=== PATIENT | female | born 1980 | race American Indian/Alaskan Native ===

== ENCOUNTER 2018-09-23 06:47 | Emergency (ER) | payer MEDICAID, OTHER ==
[2018-09-23 06:56] VITALS: BP 133/88
[2018-09-23] MEDS ORDERED: TYLENOL PO ONE (07:03)
[2018-09-23] MEDS ORDERED: TYLENOL ONE (07:07)
[2018-09-23] MEDS ORDERED: DECADRON IM ONE (07:35)
--- NOTE | 2018-09-23 07:36 | Emergency Department Report ---
Minor Respiratory - HPI Chief Complaint: Upper Respiratory Infection Stated Complaint: HEAD COLD Time Seen by Provider: 09/23/18 07:35 Duration: over a month Pain Location: Facial, Throat, Nose, Ear Severity: mild Minor Respiratory: Yes Able to Tolerate Fluids, Yes Ear Pain, No Rhinorrhea, No Sore Throat, No Cough, No Sick Contacts, No Hemoptysis, No Chest Pain, No Bel rtness of Breath, No Fever Other History: Patient is a 37-year-old -[place] female who comes to the ER today with persistent upper respiratory tract infections. She has had these symptoms for over a month. She was seen here about a month ago for the same. However, she was unable to afford the medications so she did not get them filled. Patient was given good Rx card and information about medication refill and cost. Patient is afebrile and in no acute distress. Patient does say that she has an appointment with a primary care at the end of the month. She is out of her metformin, insulin and lisinopril. ED Review of Systems ROS: Stated complaint: HEAD COLD Other details as noted in HPI Comment: All other systems reviewed and negative Constitutional: denies: chills, fever Eyes: denies: eye pain ENT: ear pain. denies: throat pain Respiratory: denies: cough Cardiovascular: denies: palpitations Endocrine: denies: intolerance to cold Gastrointestinal: denies: nausea ED Past Medical Hx - Past Medical History Previous Medical History?: Yes Hx Hypertension: Yes Hx Diabetes: Yes Hx Psychiatric Treatment: Yes (anxiety) Additional medical history: depression. anxiety. neruopathy - Surgical History Past Surgical History?: No - Social History Smoking Status: Current Every Day Smoker Substance Use Type: None - Medications Home Medications: Home Medications Medication Instructions Recorded Confirmed Last Taken Type FLUoxetine [PROzac] 20 mg PO QDAY 08/25/18 08/25/18 08/25/18 History OLANzapine [ZyPREXA] 10 mg PO DAILY 08/25/18 08/25/18 08/24/18 History Albuterol Sulfate [Ventolin HFA] 2 puff IH Q4H PRN #1 hfa.aer.ad 09/23/18 Unknown Rx Amoxicillin 500 mg PO BID #20 capsule 09/23/18 Unknown Rx Insulin NPH Hum/Reg Insulin Hm 11 unit SQ DAILY #1 vial 09/23/18 Unknown Rx [Novolin 70-30 100 Unit/ml Vial] Lisinopril [Zestril TAB] 10 mg PO QDAY #30 tablet 09/23/18 Unknown Rx metFORMIN [Glucophage] 500 mg PO BID #60 tablet 09/23/18 Unknown Rx predniSONE [Deltasone] 40 mg PO QDAY 5 Days tab 09/23/18 Unknown Rx Minor Respiratory Exam - Exam General: Vital signs noted. No distress. Alert and acting appropriately. HEENT: Yes Moist Mucous Membranes, No Pharyngeal Erythema, No Pharyngeal Exudates, No Rhinorrhea, No Conjuctival Injection, No Frontal Tenderness, No M axillary Tenderness Ear: Neither TM Bulge, Neither TM Erythema, Neither EAC Pain, Neither EAC Discharge Neck: Yes Supple, No Adenopathy Lungs: Yes Good Air Exchange, No Wheezes, No Ronchi, No Stridor, No Cough, No Labored Respirations, No Retractions, No Use of Accessory Muscles, No Other Abnormal Lung Sounds Heart: Yes Regular, No Murmur Abdomen: Yes Normal Bowel Sounds, No Tenderness, No Peritoneal Signs Skin: No Rash, No Edema Neurologic: Alert and oriented, no deficits. Musculoskeletal: Unremarkable. ED Course Vital Signs 09/23/18 06:50 Temperature 97.8 F Pulse Rate 108 H Respiratory 18 Rate Blood Pressure 133/88 O2 Sat by Pulse 98 Oximetry ED Medical Decision Making - Medical Decision Making see hpi - Differential Diagnosis urti Critical care attestation.: If time is entered above; I have spent that time in minutes in the direct care of this critically ill patient, excluding procedure time. ED Disposition Clinical Impression: Medication refill, Diabetes, HTN (hypertension), URTI (acute upper respiratory infection), Sinusitis Disposition: TO HOME OR SELFCARE Is pt being admited?: No Does the pt Need Aspirin: No Condition: Stable Instructions: Upper Respiratory Infection (ED) Prescriptions: Albuterol Sulfate [Ventolin HFA] 2 puff IH Q4H PRN #1 hfa.aer.ad PRN Reason: Shortness Of Breath Insulin NPH Hum/Reg Insulin Hm [Novolin 70-30 100 Unit/ml Vial] 11 unit SQ DAILY #1 vial Lisinopril [Zestril TAB] 10 mg PO QDAY #30 tablet metFORMIN [Glucophage] 500 mg PO BID #60 tablet predniSONE [Deltasone] 40 mg PO QDAY 5 Days tab Referrals: PRIMARY CARE, [Primary Care Provider] - 3-5 Days [facility] [Outside] - 3-5 Days Time of Disposition: 07:56
== END 2018-09-23 08:02 | disposition home or self-care (01) ==
LOC: ED 06:47
DX: J06.9 Acute upper respiratory infection, unspecified (principal); I10 Essential (primary) hypertension; Z76.0 Encounter for issue of repeat prescription; J01.90 Acute sinusitis, unspecified; E11.40 Type 2 diabetes mellitus with diabetic neuropathy, unspecified; F17.200 Nicotine dependence, unspecified, uncomplicated; F41.9 Anxiety disorder, unspecified; F32.9 Major depressive disorder, single episode, unspecified; Z79.4 Long term (current) use of insulin
CPT/HCPCS: 82962; 96372; 99283; J1100

== ENCOUNTER 2019-06-09 08:19 | Emergency (ER) | payer SELFPAY ==
[2019-06-09] MEDS ORDERED: CYCLOBENZAPRINE 10 MG TAB PO ONE (09:48)
--- NOTE | 2019-06-09 10:06 | Emergency Department Report ---
HPI - General Chief Complaint: Back Pain/Injury Time Seen by Provider: 06/09/19 09:48 - HPI HPI: 38-year-old -[place] female presents to the emergency department with a few different complaints. First, the patient says that she thinks that she got a sinus infection. She has been having a 1-2 day history of some sinus congestion and pain. No fever. No cough. She has not taken anything for her symptoms prior to arrival. Secondly, the patient complains of a 1-2 day history of exacerbation of back pain. 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 Overall she says that she has some chronic back pains but this morning she woke up very stiff and says that she had trouble getting out of bed. However the patient did ambulate into the emergency department. She denies any problems with bowel or bladder, numbness or paresthesias, or any neurological deficits. She's been taking some ibuprofen for her symptoms without any relief. She denies any fall, trauma or injury. Lastly, the patient complains of acute on chronic bilateral foot pain. She feels that they are slightly swollen. She has a past medical history of diabetes, hypertension and there is a listing of her having neuropathy. She goes to [facility] for primary care. ED Past Medical Hx - Past Medical History Previous Medical History?: Yes Hx Hypertension: Yes Hx Diabetes: Yes Hx Psychiatric Treatment: Yes (anxiety) Additional medical history: depression. anxiety. neruopathy - Surgical History Past Surgical History?: No - Social History Smoking Status: Never Smoker Substance Use Type: None - Medications Home Medications: Home Medications Medication Instructions Recorded Confirmed Last Taken Type FLUoxetine [PROzac] 20 mg PO QDAY 08/25/18 08/25/18 08/25/18 History OLANzapine [ZyPREXA] 10 mg PO DAILY 08/25/18 08/25/18 08/24/18 History Albuterol Sulfate [Ventolin HFA] 2 puff IH Q4H PRN #1 hfa.aer.ad 09/23/18 Unknown Rx Amoxicillin 500 mg PO BID #20 capsule 09/23/18 Unknown Rx Insulin NPH Hum/Reg Insulin Hm 11 unit SQ DAILY #1 vial 09/23/18 Unknown Rx [Novolin 70-30 100 Unit/ml Vial] Lisinopril [Zestril TAB] 10 mg PO QDAY #30 tablet 09/23/18 Unknown Rx metFORMIN [Glucophage] 500 mg PO BID #60 tablet 09/23/18 Unknown Rx predniSONE [Deltasone] 40 mg PO QDAY 5 Days tab 09/23/18 Unknown Rx Cyclobenzaprine [Flexeril] 10 mg PO BID #12 tablet 06/09/19 Unknown Rx Fluticasone [Flonase] 1 spray NS QDAY #1 bottle 06/09/19 Unknown Rx ED Review of Systems ROS: Stated complaint: BACK/FEET PAIN/SINUS INFECTION Other details as noted in HPI Comment: All other systems reviewed and negative Constitutional: denies: chills, fever Eyes: denies: eye pain, vision change ENT: congestion. denies: ear pain, throat pain Respiratory: denies: cough, shortness of breath Gastrointestinal: denies: abdominal pain Musculoskeletal: back pain, joint swelling, arthralgia, myalgia Skin: denies: rash, lesions Neurological: denies: weakness, numbness, paresthesias Physical Exam - Physical Exam Physical Exam: GENERAL: The patient is well-developed well-nourished. HENT: Normocephalic. Atraumatic. Patient has moist mucous membranes. EYES: Extraocular motions are intact. NECK: Supple. Trachea is midline. CHEST/LUNGS: Clear to auscultation. There is no respiratory distress noted. HEART/CARDIOVASCULAR: Regular. There is no tachycardia. There is no murmur. ABDOMEN: Abdomen is soft, nontender. Patient has normal bowel sounds. There is no abdominal distention. SKIN: Skin is warm and dry. NEURO: The patient is awake, alert, and oriented. The patient is cooperative. The patient has no focal neurologic deficits. Normal speech. Cranial nerves II through XII grossly intact. MUSCULOSKELETAL: There is some tenderness to palpation to the bilateral feet. +2 over 4 dorsalis pedis pulses bilaterally. There is no limitation range of motion. There is no evidence of acute injury. BACK: Bilateral paraspinal tenderness to palpation but no midline thoracic or lumbar tenderness to palpation, step-off or deformity. ED Medical Decision Making - Medical Decision Making Regarding the patient's bilateral foot pain. She is neurovascularly intact. She has a history of neuropathy and is diabetic. I do not see any appreciable swelling, rash, skin color change. This is most likely consistent with diabetic neuropathy. The patient may need to be started on something like gabapentin or Lyrica. She will be given a referral for podiatry and primary care. Regarding the patient's back pains, the pains appear most consistent with musculoskeletal and/or spasmodic pains. She does not have any midline tenderness to palpation, step-off or deformity. She has chronic back pains that are recently exacerbated by a job in which she has to lift heavy objects. She does not have any problems with bowel or bladder, numbness or paresthesias, or any neurological deficits. She appears low suspicion for any of the emergent back condition such as cauda equina or cord compression syndrome. Patient was placed on some Flexeril and we discussed heat versus ice. Regarding the patient's sinus congestion. She is afebrile. It appears more consistent with a viral sinus infection versus a bacterial sinusitis. Patient will be placed on Flonase. - Differential Diagnosis URI, sinusitis, muscle spasm, peripheral neuropathy, gout Critical Care Time: No Critical care attestation.: If time is entered above; I have spent that time in minutes in the direct care of this critically ill patient, excluding procedure time. ED Disposition Clinical Impression: Sinus congestion Diabetic neuropathy Qualifiers: Diabetes mellitus type: type 2 Diabetes mellitus complication detail: diabetic polyneuropathy Qualified Code(s): E11.42 - Type 2 diabetes mellitus with diabetic polyneuropathy Back pain Qualifiers: Back pain location: back pain in unspecified location Chronicity: chronic Back pain laterality: bilateral Qualified Code(s): M54.9 - Dorsalgia, unspecified Disposition: DC-01 TO HOME OR SELFCARE Is pt being admited?: No Condition: Stable Instructions: Diabetic Neuropathy (ED), Back Pain (ED) Additional Instructions: Please follow-up with your primary care physician in the next few days. Return to the emergency Department with any worsening of your symptoms or any acute distress. Take your diabetes medications as previously prescribed. I am giving you a referral for a local grill cook, Dr. Becerril, to follow up regarding your foot pain. You have been prescribed a medication that is sedating and therefore should not be taken prior to driving, working, and responsible for children and in no way should be mixed with alcohol of any quantity. Prescriptions: Cyclobenzaprine [Flexeril] 10 mg PO BID #12 tablet Fluticasone [Flonase] 1 spray NS QDAY #1 bottle Referrals: REYES BECERRIL DPM [Staff Physician] - 2-3 Days [facility] [Outside] - 2-3 Days Forms: Work/School Release Form(ED) Time of Disposition: 10:09
[2019-06-09 10:11] VITALS: BP 149/106
== END 2019-06-09 10:20 | disposition home or self-care (01) ==
LOC: ED 08:19
DX: E11.40 Type 2 diabetes mellitus with diabetic neuropathy, unspecified (principal); M54.9 Dorsalgia, unspecified; R09.81 Nasal congestion; I10 Essential (primary) hypertension; F41.9 Anxiety disorder, unspecified; F32.9 Major depressive disorder, single episode, unspecified; Z79.4 Long term (current) use of insulin

== ENCOUNTER 2021-02-18 23:03 | Emergency (ER) | payer OTHER ==
--- NOTE | 2021-02-18 23:51 | Emergency Department Report ---
ED Head Trauma HPI - General Chief complaint: Head Injury Stated complaint: SLIP AND FALL/LOC Time Seen by Provider: 02/18/21 23:35 Source: EMS Mode of arrival: Stretcher Limitations: No Limitations - History of Present Illness Initial comments: Patient is a 40-year-old female that presents emergency room for a head injury and fall. Patient is currently in half-way and has a please officer at bedside. Patient states she was in the common area of the half-way getting a drink of water and slipped on a wet floor. Patient states she fell hit the back of her head and lost consciousness. Patient is complaining of headache and head pain and neck pain. Patient states the pain is 10 out of 10. He states the pain is better with rest and worse with exertion. Patient is currently in a c-collar. Patient brought in by EMS. Report received from EMS. Patient states he lost consciousness for short period of time. Patient recalls the events before and after she woke up. Patient denies any other pain. Patient denies back pain. Patient denies abdominal pain. Patient denies chest pain. Patient denies shortness of breath. Patient denies recent travel. Patient denies recent international travel. Patient denies exposure to the novel coronavirus. Patient denies sick contacts. Patient denies fever and chills. Patient denies cough. Patient denies diarrhea. Patient denies coming in contact with anybody with symptoms of the novel coronavirus. Complaint: head injury, head pain, fall -: Sudden Arrival Conditions: Positive: C-spine immobilization present Mechanism of Injury: other Location: occipital Loss of Consciousness: yes, second(s) Previous Trauma to this Area: No Place: home Radiation: none Severity: severe Severity scale (0 -10): 10 Quality: sharp Consistency: constant Other Injuries: neck Associated Symptoms: nausea, neck pain. denies: confusion, amnesia, repetitive questioning, vision changes, vomiting, vertigo, syncope, numbness, weakness, tingling - Related Data Home Medications Medication Instructions Recorded Confirmed Last Taken FLUoxetine [PROzac] 20 mg PO QDAY 08/25/18 08/25/18 08/25/18 OLANzapine [ZyPREXA] 10 mg PO DAILY 08/25/18 08/25/18 08/24/18 Previous Rx's Medication Instructions Recorded Last Taken Type Albuterol Sulfate [Ventolin HFA] 2 puff IH Q4H PRN #1 hfa.aer.ad 09/23/18 Unknown Rx Amoxicillin 500 mg PO BID #20 capsule 09/23/18 Unknown Rx Insulin NPH Hum/Reg Insulin Hm 11 unit SQ DAILY #1 vial 09/23/18 Unknown Rx [Novolin 70-30 100 Unit/ml Vial] lisinopriL [Zestril TAB] 10 mg PO QDAY #30 tablet 09/23/18 Unknown Rx metFORMIN [Glucophage] 500 mg PO BID #60 tablet 09/23/18 Unknown Rx predniSONE [Deltasone] 40 mg PO QDAY 5 Days tab 09/23/18 Unknown Rx Cyclobenzaprine [Flexeril] 10 mg PO BID #12 tablet 06/09/19 Unknown Rx Fluticasone [Flonase] 1 spray NS QDAY #1 bottle 06/09/19 Unknown Rx Metaxalone [Skelaxin] 800 mg PO TID PRN #15 tablet 02/19/21 Unknown Rx Allergies/Adverse reactions: Allergies Allergy/AdvReac Type Severity Reaction Status Date / Time No Known Allergies Allergy Verified 08/25/18 09:07 ED Review of Systems ROS: Stated complaint: SLIP AND FALL/LOC Other details as noted in HPI Constitutional: denies: chills, fever Eyes: denies: eye pain, eye discharge, vision change ENT: denies: ear pain, throat pain Respiratory: denies: cough, shortness of breath, wheezing Cardiovascular: denies: chest pain, palpitations Endocrine: no symptoms reported Gastrointestinal: denies: abdominal pain, nausea, diarrhea Genitourinary: denies: urgency, dysuria, discharge Musculoskeletal: denies: back pain, joint swelling, arthralgia Skin: denies: rash, lesions Neurological: as per HPI, headache. denies: weakness, paresthesias Psychiatric: denies: anxiety, depression Hematological/Lymphatic: denies: easy bleeding, easy bruising ED Past Medical Hx - Past Medical History Previous Medical History?: Yes Hx Hypertension: Yes Hx Diabetes: Yes Hx Psychiatric Treatment: Yes (anxiety) Additional medical history: depression. anxiety. neruopathy - Surgical History Past Surgical History?: No - Family History Family history: no significant - Social History Smoking Status: Current Every Day Smoker Substance Use Type: Alcohol - Medications Home Medications: Home Medications Medication Instructions Recorded Confirmed Last Taken Type FLUoxetine [PROzac] 20 mg PO QDAY 12/17/18 12/17/18 12/17/18 History OLANzapine [ZyPREXA] 10 mg PO DAILY 08/25/18 08/25/18 08/24/18 History Albuterol Sulfate [Ventolin HFA] 2 puff IH Q4H PRN #1 hfa.aer.ad 09/23/18 Unknown Rx Amoxicillin 500 mg PO BID #20 capsule 09/23/18 Unknown Rx Insulin NPH Hum/Reg Insulin Hm 11 unit SQ DAILY #1 vial 09/23/18 Unknown Rx [Novolin 70-30 100 Unit/ml Vial] lisinopriL [Zestril TAB] 10 mg PO QDAY #30 tablet 09/23/18 Unknown Rx metFORMIN [Glucophage] 500 mg PO BID #60 tablet 09/23/18 Unknown Rx predniSONE [Deltasone] 40 mg PO QDAY 5 Days tab 09/23/18 Unknown Rx Cyclobenzaprine [Flexeril] 10 mg PO BID #12 tablet 06/09/19 Unknown Rx Fluticasone [Flonase] 1 spray NS QDAY #1 bottle 06/09/19 Unknown Rx Metaxalone [Skelaxin] 800 mg PO TID PRN #15 tablet 02/19/21 Unknown Rx ED Physical Exam - General Limitations: No Limitations General appearance: alert, in no apparent distress - Head Head exam: Present: atraumatic, normocephalic - Eye Eye exam: Present: normal appearance, PERRL Pupils: Present: normal accommodation - ENT ENT exam: Present: mucous membranes moist - Neck Neck exam: Present: normal inspection, tenderness, other (Patient in c-collar. ) - Respiratory Respiratory exam: Present: normal lung sounds bilaterally. Absent: respiratory distress - Cardiovascular Cardiovascular Exam: Present: regular rate, normal rhythm. Absent: systolic murmur, diastolic murmur, rubs, gallop - GI/Abdominal GI/Abdominal exam: Present: soft, normal bowel sounds. Absent: distended, tenderness, guarding - Extremities Exam Extremities exam: Present: normal inspection - Back Exam Back exam: Present: normal inspection - Neurological Exam Neurological exam: Present: alert, oriented X3 - Psychiatric Psychiatric exam: Present: normal affect, normal mood - Skin Skin exam: Present: warm, dry, intact, normal color. Absent: rash ED Course Vital Signs 02/18/21 02/18/21 23:10 23:14 Temperature 98.1 F 98.7 F Pulse Rate 99 H Respiratory 18 Rate Blood Pressure 141/96 [Left] O2 Sat by Pulse 98 Oximetry - Reevaluation(s) Reevaluation #1: C-collar removed. I discussed all results and clinical findings with patient. I discussed plan of care with patient. Patient agrees with plan of care. Patient is stable for discharge. Patient will be discharged home. Patient given discharge instructions. Patient voiced understanding of discharge instructions. 02/19/21 01:56 - Lab Data Result diagrams: 02/19/21 00:18 02/19/21 00:18 Lab Results 02/19/21 02/19/21 Range/Units 00:18 00:18 WBC 8.1 (4.5-11.0) K/mm3 RBC 4.65 (3.65-5.03) M/mm3 Hgb 12.7 (10.1-14.3) gm/dl Hct 36.8 (30.3-42.9) % MCV 79 (79-97) fl MCH 27 L (28-32) pg MCHC 35 H (30-34) % RDW 14.4 (13.2-15.2) % Plt Count 235 (140-440) K/mm3 Add Manual Diff Complete Total Counted 100 Seg Neuts % (Manual) 61.0 (40.0-70.0) % Band Neutrophils % 1.0 % Lymphocytes % (Manual) 33.0 (13.4-35.0) % Monocytes % (Manual) 4.0 (0.0-7.3) % Eosinophils % (Manual) 1.0 (0.0-4.3) % Nucleated RBC % Not Reportable Seg Neutrophils # Man 4.9 (1.8-7.7) K/mm3 Band Neutrophils # 0.1 K/mm3 Lymphocytes # (Manual) 2.7 (1.2-5.4) K/mm3 Abs React Lymphs (Man) 0.0 K/mm3 Monocytes # (Manual) 0.3 (0.0-0.8) K/mm3 Eosinophils # (Manual) 0.1 (0.0-0.4) K/mm3 Basophils # (Manual) 0.0 (0.0-0.1) K/mm3 Metamyelocytes # 0.0 K/mm3 Myelocytes # 0.0 K/mm3 Promyelocytes # 0.0 K/mm3 Blast Cells # 0.0 K/mm3 WBC Morphology Not Reportable Hypersegmented Neuts Not Reportable Hyposegmented Neuts Not Reportable Hypogranular Neuts Not Reportable Smudge Cells Not Reportable Toxic Granulation Not Reportable Toxic Vacuolation Not Reportable Dohle Bodies Not Reportable Pelger-Huet Anomaly Not Reportable Ramakrishna Rods Not Reportable Platelet Estimate Consistent w auto Clumped Platelets Not Reportable Plt Clumps, EDTA Not Reportable Large Platelets Not Reportable Giant Platelets Not Reportable Platelet Satelliting Not Reportable Plt Morphology Comment Not Reportable RBC Morphology Not Reportable Dimorphic RBCs Not Reportable Polychromasia Not Reportable Hypochromasia Not Reportable Poikilocytosis Not Reportable Anisocytosis 1+ Microcytosis Not Reportable Macrocytosis Not Reportable Spherocytes Not Reportable Pappenheimer Bodies Not Reportable Sickle Cells Not Reportable Target Cells Not Reportable Tear Drop Cells Not Reportable Ovalocytes Not Reportable Helmet Cells Not Reportable Holm-Fanwood Bodies Not Reportable [place] Rings Not Reportable [place] Cells Not Reportable Bite Cells Not Reportable Crenated Cell Not Reportable Elliptocytes Not Reportable Acanthocytes (Spur) Not Reportable Rouleaux Not Reportable Hemoglobin C Crystals Not Reportable Schistocytes Not Reportable Malaria parasites Not Reportable Jamel Bodies Not Reportable Hem Pathologist Commnt No Sodium 136 L (137-145) mmol/L Potassium 4.3 (3.6-5.0) mmol/L Chloride 98.4 (98-107) mmol/L Carbon Dioxide 23 (22-30) mmol/L Anion Gap 19 mmol/L BUN 8 (7-17) mg/dL Creatinine 0.7 (0.6-1.2) mg/dL Estimated GFR > 60 ml/min BUN/Creatinine Ratio 11 % Glucose 322 H (65-100) mg/dL Calcium 9.7 (8.4-10.2) mg/dL Total Bilirubin 0.20 (0.1-1.2) mg/dL AST 28 (5-40) units/L ALT 51 (7-56) units/L Alkaline Phosphatase 57 (35-129) units/L Total Protein 7.5 (6.3-8.2) g/dL Albumin 4.5 (3.9-5) g/dL Albumin/Globulin Ratio 1.5 % - Radiology Data Radiology results: report reviewed Examination: CT of the cervical spine without contrast Clinical information: Trauma. Neck pain. Comparison: CT of the head, 02/19/2021 Technical: Multiple axial CT images of the cervical spine were obtained without intravenous contrast. Sagittal and coronal reformats were obtained. All CTs at this facility utilize dose reduction techniques including automated exposure control, iterative reconstruction and weight based dosing when appropriate to reduce patient radiation dose to as low as reasonable achievable. Findings: There is normal alignment of the cervical vertebral bodies. Vertebral body height and intervertebral disc spaces are well maintained. There is no CT evidence of acute bony fracture of the cervical vertebral bodies. Limited visualization of the included soft tissues demonstrates no acute abnormality. Impression: 1. No CT evidence of acute bony abnormality of the cervical spine. Examination: CT of the head without contrast Clinical information: Trauma. Headache. Comparison: None Technical: Multiple axial CT images of the head were obtained without intravenous contrast. Sagittal and coronal reformats were obtained. All CTs at this facility utilize dose reduction techniques including automated exposure control, iterative reconstruction and weight based dosing when appropriate to reduce patient radiation dose to as low as reasonable achievable. Findings: INTRACRANIAL CONTENTS: There is no CT evidence of acute intracranial hemorrhage or large territorial infarct. The ventricular system is normal in size. There is no evidence of mass effect or midline shift. SKULL: No acute bony abnormality is visualized. ORBITS: The bilateral orbits and globes appear normal PARANASAL SINUSES / MASTOID AIR CELLS: There is partial mucosal opacification of the right maxillary sinus. Remaining paranasal sinuses and mastoid air cells are clear Impression: 1. No CT evidence of acute intracranial process. - Medical Decision Making Patient is a 40-year-old female that presents emergency room from half-way for a slip and fall. Patient states she was getting some water and she slipped on a wet floor and hit the back of her head. Patient complained of headache and head pain and neck pain. Patient states she lost consciousness for a brief moment. The officer states it was witnessed on the cameras. Patient denies any other complaints or injuries. Patient had labs done essentially remarkable for hyperglycemia. Patient has a history of diabetes. Patient's diabetes can be managed by the half-way doctor in half-way medical staff. Patient had a CT scan of the head and was negative for acute finding. Patient had a CT scan of the C-spine was negative for acute findings of fracture. Patient stable for discharge. Patient will be discharged to the care of the police. Patient presents to the ER via EMS and the patient was placed in a c-collar. The c-collar remained in proper place until the patient was cleared by CT scan. - Differential Diagnosis Headache, head injury, concussion, neck pain, sprain, strain, fracture Critical care attestation.: If time is entered above; I have spent that time in minutes in the direct care of this critically ill patient, excluding procedure time. ED Disposition Clinical Impression: Neck pain Head injury Qualifiers: Encounter type: initial encounter Qualified Code(s): S09.90XA - Unspecified injury of head, initial encounter Headache Qualifiers: Headache type: post-traumatic Headache chronicity pattern: acute headache Intractability: not intractable Qualified Code(s): G44.319 - Acute post- traumatic headache, not intractable Scalp contusion Qualifiers: Encounter type: initial encounter Qualified Code(s): S00.03XA - Contusion of scalp, initial encounter Cervical sprain Qualifiers: Encounter type: initial encounter Qualified Code(s): S13.9XXA - Sprain of joints and ligaments of unspecified parts of neck, initial encounter Concussion Qualifiers: Encounter type: initial encounter Loss of consciousness presence/duration: with LOC of 30 min or less Qualified Code(s): S06.0X1A - Concussion with loss of consciousness of 30 minutes or less, initial encounter Disposition: DC-01 TO HOME OR SELFCARE Is pt being admited?: No Does the pt Need Aspirin: No Condition: Stable Instructions: Concussion, Adult, [id number], Head Injury, Adult, Post- Concussion Syndrome, [id number], Concussion, Adult, Contusion, [id number], Head Injury, Adult, [id number], Post-Concussion Syndrome, Cervical Sprain, [id number], Returning to Sports and Activities After a Concussion, Adult Additional Instructions: Patient to follow-up with primary care in 2 to 3 days. Patient to follow-up with neurologist in 2 to 3 days. Patient to follow-up concussion precautions and postconcussion syndrome precautions. Patient to avoid driving. Patient to avoid screen usage. Patient avoid smart phone, iPad and TV. Patient to avoid reading. Patient to rest. Patient to increase water. Patient to avoid stre nuous exercise or heavy lifting until cleared by neurologist and primary care. Patient to take Tylenol or ibuprofen as needed for pain. Patient to take meds as directed. Patient to return to the ER if condition worsens, changes or new symptoms arise. Prescriptions: Metaxalone [Skelaxin] 800 mg PO TID PRN #15 tablet PRN Reason: Muscle Spasm Referrals: PRIMARY CARE, [Primary Care Provider] - 2-3 Days YAMILETH GRAFF MD [Staff Physician] - 2-3 Days Time of Disposition: 02:00
[2021-02-19 00:33] LABS: Hematocrit 36.8 % (30.3-42.9); Hemoglobin 12.7 gm/dl (10.1-14.3); Mean Corpuscular HGB Conc 35 % (30-34); Mean Corpuscular Volume 79 fl (79-97); Platelet Count 235 K/mm3 (140-440); Red Blood Count 4.65 M/mm3 (3.65-5.03); Red Cell Distribution Width 14.4 % (13.2-15.2)
[2021-02-19 00:54] LABS: Alanine Aminotransferase 51 units/L (7-56); Albumin 4.5 g/dL (3.9-5); Blood Urea Nitrogen 8 mg/dL (7-17); Calcium 9.7 mg/dL (8.4-10.2); Hemolysis Index 34
[2021-02-19 01:17] LABS: BUN/Creatinine Ratio 11
--- NOTE | 2021-02-19 01:35 | Cat Scan Report ---
Examination: CT of the head without contrast Clinical information: Trauma. Headache. Comparison: None Technical: Multiple axial CT images of the head were obtained without intravenous contrast. Sagittal and coronal reformats were obtained. All CTs at this facility utilize dose reduction techniques inc luding automated exposure control, iterative reconstruction and weight based dosing when appropriate to reduce patient radiation dose to as low as reasonable achievable. Findings: INTRACRANIAL CONTENTS: There is no CT evidence of acute intracranial hemorrhage or large territorial infarct. The ventricular system is normal in size. There is no evidence of mass effect or midline michael ft. SKULL: No acute bony abnormality is visualized. ORBITS: The bilateral orbits and globes appear normal PARANASAL SINUSES / MASTOID AIR CELLS: There is partial mucosal opacification of the right maxillary sinus. Remaining paranasal sinuses and mastoid air cells are clear Impression: 1. No CT evidence of acute intracranial process. Signer Name: Portia James MD Signed: 02/19/2021 1:30 AM Workstation Name: [id number]
--- NOTE | 2021-02-19 01:42 | Cat Scan Report ---
Examination: CT of the cervical spine without contrast Clinical information: Trauma. Neck pain. Comparison: CT of the head, 02/19/2021 Technical: Multiple axial CT images of the cervical spine were obtained without intravenous contrast. Sagittal and coronal reformats were obtained. All CTs at this facility utilize dose reduction techn iques including automated exposure control, iterative reconstruction and weight based dosing when asha ropriate to reduce patient radiation dose to as low as reasonable achievable. Findings: There is normal alignment of the cervical vertebral bodies. Vertebral body height and intervertebral disc spaces are well maintained. There is no CT evidence of acute bony fracture of the cervical verte bral bodies. Limited visualization of the included soft tissues demonstrates no acute abnormality. Impression: 1. No CT evidence of acute bony abnormality of the cervical spine. Signer Name: Portia James MD Signed: 02/19/2021 1:38 AM Workstation Name: [id number]
[2021-02-19 01:49] LABS: Band Neutrophils # (Manual) 0.1 K/mm3; Total Cells Counted 100
[2021-02-19 01:53] LABS: Anisocytosis 1+; Platelet Estimate Consistent w Auto
[2021-02-19 03:11] VITALS: BP 149/90
== END 2021-02-19 03:11 | disposition home or self-care (01) ==
LOC: ED 23:03
DX: S06.0X0A Concussion without loss of consciousness, initial encounter (principal); S13.4XXA Sprain of ligaments of cervical spine, initial encounter; S00.03XA Contusion of scalp, initial encounter; M54.2 Cervicalgia; I10 Essential (primary) hypertension; E11.9 Type 2 diabetes mellitus without complications; F41.9 Anxiety disorder, unspecified; F17.200 Nicotine dependence, unspecified, uncomplicated; Z79.4 Long term (current) use of insulin; Z79.2 Long term (current) use of antibiotics; Z79.899 Other long term (current) drug therapy; W01.0XXA Fall on same level from slipping, tripping and stumbling without subsequent striking against object, initial encounter; Y93.89 Activity, other specified; Y92.89 Other specified places as the place of occurrence of the external cause; Y99.8 Other external cause status
CPT/HCPCS: 36415; 70450; 72125; 80053; 85007; 85025